=== PATIENT | male | born 1980 ===

== ENCOUNTER 2019-02-09 03:46 | Emergency (ER) | payer OTHER, BC ==
[2019-02-09] MEDS ORDERED: PERCOCET 5/325 PO ONE (04:44)
[2019-02-09] MEDS ORDERED: ZOFRAN ODT PO ONE (04:44)
[2019-02-09] MEDS ORDERED: TORADOL IM ONE (04:44)
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
--- NOTE | 2019-02-09 06:35 | XRay Report ---
EXAM: XR KNEE 3V LT HISTORY: pain TECHNIQUE: 3 views COMPARISON: None available. FINDINGS: There is a large, approximately 9.3 cm CC by 6.9 cm transverse by 7.3 cm AP, lytic destructive mass l esion involving the medial femoral condyle/metaphysis and surrounding soft tissues, suspicious for a primary malignant lung neoplasm. Recommend follow-up assessment with MRI for further characterization . There is an approximately 9.1 mm CC by 7.1 mm AP sclerotic lesion within the proximal tibial diaphy sis, presumed to represent a bone island. There is no acute bony fracture, or joint subluxation or dislocation seen. No evidence for inflammat ory or degenerative arthritis is seen. No suprapatellar soft tissue density reminiscent of a gross marli int effusion is seen. No soft tissue emphysema or foreign body is seen. IMPRESSION: 1. No acute bony fracture, or joint subluxation or dislocation seen. 2. Large, approximately 9.3 cm CC by 6.9 cm transverse by 7.3 cm AP, lytic destructive mass lesion i nvolving the medial femoral condyle/metaphysis and surrounding soft tissues, suspicious for a primary malignant lung neoplasm. Recommend follow-up assessment with MRI for further characterization. This document is electronically signed by Patrice Crystal MD., Feb 09 2019 06:32:44 AM CORAL
[2019-02-09 06:58] VITALS: BP 139/87
== END 2019-02-09 06:58 | disposition home or self-care (01) ==
LOC: ED 03:46
DX: S80.02XA Contusion of left knee, initial encounter (principal); M17.12 Unilateral primary osteoarthritis, left knee; V49.49XA Driver injured in collision with other motor vehicles in traffic accident, initial encounter; Y93.89 Activity, other specified; Y92.89 Other specified places as the place of occurrence of the external cause; Y99.8 Other external cause status
CPT/HCPCS: 73562; 96372; 99284; J1885; Q0162